=== PATIENT | male | born 1985 | race Caucasian/White ===

== ENCOUNTER 2024-10-17 18:54 | Emergency (ER) | payer OTHER, SELFPAY ==
[2024-10-17 18:56] VITALS: BP 128/81; PULSE 67; RESP 18; TEMP 35.9; O2SAT 99; BMI 26.6
[2024-10-17 22:07] VITALS: BP 143/70; PULSE 70; RESP 18; TEMP 36.7; O2SAT 999
== END 2024-10-17 22:07 | disposition home or self-care (01) ==
PROVIDERS: Emergency Provider Emergency Medicine; PCP Family Medicine; Visit Provider Emergency Medicine
DX: S61.452A Open bite of left hand, initial encounter (principal); W54.0XXA Bitten by dog, initial encounter; Y93.89 Activity, other specified; Y99.0 Civilian activity done for income or pay; Y92.89 Other specified places as the place of occurrence of the external cause; F17.290 Nicotine dependence, other tobacco product, uncomplicated; Z23 Encounter for immunization
CPT/HCPCS: 73130; 90471; 90715; 99282